=== PATIENT | female | born 1965 | race Two or more races ===

== ENCOUNTER 2020-09-01 11:21 | Emergency (ER) | payer OTHER ==
[~2020-09-01] VITALS: Ht 152.4 cm; Wt 76.2 kg
[2020-09-01 12:03] VITALS: BP 136/84
[2020-09-01] MEDS ORDERED: TETANUS-DIPTH-ACEL PERTUSSIS 0.5ML SYR Tdap IM ONE (13:15)
[2020-09-04 10:30] LABS: Hepatitis B Surface Antibody Negative
[2020-09-04 12:12] LABS: Hepatitis B Surface Antigen Negative (Negative)
== END 2020-09-01 13:32 | disposition home or self-care (01) ==
LOC: ER 11:21
DX: S61.231A Puncture wound without foreign body of left index finger without damage to nail, initial encounter (principal); I10 Essential (primary) hypertension; W46.0XXA Contact with hypodermic needle, initial encounter; Y93.89 Activity, other specified; Y92.89 Other specified places as the place of occurrence of the external cause; Y99.8 Other external cause status
CPT/HCPCS: 36415; 86703; 86706; 86803; 87340; 90471; 90715